=== PATIENT | male | born 2000 | race Caucasian/White ===

== ENCOUNTER 2021-05-20 01:43 | Emergency (ER) | payer BC ==
[~2021-05-20] VITALS: Ht 182.9 cm; Wt 86.4 kg
[2021-05-20 01:48] VITALS: TEMP 97.8
[2021-05-20 02:03] VITALS: BP 120/83; PULSE 78
== END 2021-05-20 02:02 | disposition home or self-care (01) ==
LOC: COL.ER 01:43
DX: S09.90XA Unspecified injury of head, initial encounter (principal); W19.XXXA Unspecified fall, initial encounter; Y92.59 Other trade areas as the place of occurrence of the external cause

== ENCOUNTER 2023-10-02 16:46 | Inpatient (IN) | payer BC ==
[~2023-10-02] VITALS: Ht 180.3 cm; Wt 88.9 kg
[2023-10-02] VITALS (254 sets, daily range): BP systolic 101–131; BP diastolic 58–96; PULSE 89–104; TEMP 99; O2SAT 94–100
[2023-10-02 17:24] LABS: COLLECTION METHOD CLEAN CATCH
[2023-10-02 17:28] LABS: HEMATOCRIT 51.9 % (42.0-52.0); HEMOGLOBIN 17.1 g/dl (13.5-18.0); MEAN CELL VOLUME 83 fl (80.0-100.0); MEAN CORPUSCULAR HEMOGLOBIN 27 pg (27-31); MEAN CORPUSCULAR HGB CONC 33 g/dl (33.0-37.0); MEAN PLATELET VOLUME 11.1 fl (7.4-10.4); PLATELET COUNT 259 K/mm3 (130-400); RED BLOOD COUNT 6.26 M/mm3 (4.20-5.60)
[2023-10-02 17:44] LABS: ALANINE AMINOTRANSFERASE 38 U/L (0-55); ALBUMIN 4.3 gm/dL (3.5-5.0); ALKALINE PHOSPHATASE 125 U/L (40-150); ANION GAP 25 mmol/L (7-16); AST,SGOT 15 U/L (5-34); BLOOD UREA NITROGEN 16 mg/dL (9-21); CALCIUM 10.4 mg/dL (8.4-10.2); CHLORIDE 101 mmol/L (98-107); CREATININE, serum 1.72 mg/dL (0.72-1.25); LIPASE 44 U/L (8-78); POTASSIUM 4.2 mmol/L (3.5-4.5); SODIUM 132 mmol/L (136-145); TOTAL PROTEIN 8.1 gm/dL (6.2-8.1)
[2023-10-02 17:46] LABS: URINE APPEARANCE Clear (CLEAR/HAZY); URINE BLOOD 1+ (NEGATIVE); URINE COLOR Yellow (YELLOW); URINE GLUCOSE 2+ (NEGATIVE); URINE KETONE 4+ (NEGATIVE); URINE NITRATE Negative (NEGATIVE); URINE PROTEIN(semi-quant) TRACE (NEGATIVE); URINE UROBILINOGEN 0.2 E.U/dL (0.2-1.0)
[2023-10-02 17:47] LABS: SQUAMOUS EPITHELIAL 0-2 /hpf (0-10); URINE RBC 0-2 /hpf (0-2)
[2023-10-02 17:47] LABS: ACETONE,SERUM MODERATE
[2023-10-02 17:48] LABS: GLUCOSE 580 mg/dL (70-99)
[2023-10-02 17:48] LABS: TRICYCLIC ANTIDEPRESS URINE NEGATIVE
[2023-10-02 17:49] LABS: CARBON DIOXIDE 6 mmol/L (22-29)
[2023-10-02 17:53] LABS: BILIRUBIN,TOTAL 0.8 mg/dL (0.2-1.2)
[2023-10-02 18:15] LABS: LYMPHOCYTE 5 % (20.0-51.0); NEUTROPHILS 88 % (42.0-75.2)
[2023-10-02 18:16] LABS: HYPOCHROMIA 1+; PLATELET ESTIMATE NORMAL (NORMAL); TOXIC GRANULATION PRESENT
[2023-10-02 18:54] LABS: MAGNESIUM 2.3 mg/dL (1.6-2.6); PHOSPHOROUS 3.8 mg/dL (2.3-4.7)
[2023-10-02 20:52] LABS: CALCIUM 8.5 mg/dL (8.4-10.2); CREATININE, serum 1.24 mg/dL (0.72-1.25); POTASSIUM 3.4 mmol/L (3.5-4.5)
[2023-10-02 22:42] LABS: CALCIUM 8.2 mg/dL (8.4-10.2); CREATININE, serum 1.12 mg/dL (0.72-1.25); POTASSIUM 3.5 mmol/L (3.5-4.5)
[2023-10-03] VITALS (1155 sets, daily range): BP systolic 92–134; BP diastolic 51–84; PULSE 73–96; TEMP 97.6–99; O2SAT 86–100
[2023-10-03 00:57] LABS: CALCIUM 8.1 mg/dL (8.4-10.2); CREATININE, serum 1.02 mg/dL (0.72-1.25); POTASSIUM 3.1 mmol/L (3.5-4.5)
[2023-10-03 03:03] LABS: CALCIUM 7.9 mg/dL (8.4-10.2); CREATININE, serum 0.92 mg/dL (0.72-1.25); POTASSIUM 3.5 mmol/L (3.5-4.5)
[2023-10-03 05:05] LABS: BASO % 0.4 % (0.0-2.0); EOS # 0.1 K/mm3 (0.0-0.7); GRAN # 7.9 K/mm3 (1.4-6.5); GRAN % 71.1 % (42.2-75.2); LYMPH % 17.9 % (20.0-51.0); MEAN CELL VOLUME 79 fl (80.0-100.0); MEAN CORPUSCULAR HEMOGLOBIN 28 pg (27-31); MEAN CORPUSCULAR HGB CONC 35 g/dl (33.0-37.0); MEAN PLATELET VOLUME 10.2 fl (7.4-10.4); MONO % 9.2 % (1.7-9.3); PLATELET COUNT 179 K/mm3 (130-400); RED BLOOD COUNT 5.06 M/mm3 (4.20-5.60); REDCELL DISTRIBUTION WIDTH-CV 13.6 % (11.5-14.5)
[2023-10-03 05:07] LABS: HEMATOCRIT 39.7 % (42.0-52.0)
[2023-10-03 05:24] LABS: CALCIUM 8.2 mg/dL (8.4-10.2); CREATININE, serum 0.92 mg/dL (0.72-1.25); POTASSIUM 3.2 mmol/L (3.5-4.5)
[2023-10-03 05:45] LABS: MAGNESIUM 1.6 mg/dL (1.6-2.6); PHOSPHOROUS 1.8 mg/dL (2.3-4.7)
--- NOTE | 2023-10-03 07:55 | NUR ---
RECEIVED REPORT FROM NIGHTSMOFT RNABDOUL. PATIENT REMAINS ON HOURLY GLUCOSE CHECKS AND ON THE INSULIN DRIP AT THIS TIME. PATIENT RESTING IN BED WITH EYES CLOSED. BED IN A LOW POSITION. CALL LIGHT WITHIN REACH.
--- NOTE | 2023-10-03 07:58 | NUR ---
HEAD TO TOE ASSESSMENT COMPLETED. PATIENT IS ALERT AND ORIENTED X4. PUPILS ARE EQUAL AND REACTIVE. HEART SOUNDS REGULAR WITH S1 AND S2 NOTED. LUNG SOUNDS CLEAR BILATERALLY IN UPPER AND LOWER LOBES. BOWEL SOUNDS ACTIVE X4. PATIENT IS ABLE TO GET UP TO THE TOILET INDEPENDENTLY TO VOID. PULSES PRESENT AND EQUAL BILATERALLY IN UPPER AND LOWER EXTREMITIES. PATIENT REMAINS ON INSULIN DRIP AND HOURLY GLUCOSE CHECKS AT THIS TIME. PATIENT IS ALSO ON D5 1/2 NS W/ 20MEQ OF POTASSIUM WELL POTASSOUM REPLACEMENT. BED IS IN A LOW POSITION. CALL LIGHT WITHIN REACH.
[2023-10-03 08:13] LABS: CREATININE, serum 0.86 mg/dL (0.72-1.25); POTASSIUM 3.1 mmol/L (3.5-4.5)
[2023-10-03 08:56] LABS: CALCIUM 8.1 mg/dL (8.4-10.2); CREATININE, serum 0.86 mg/dL (0.72-1.25); POTASSIUM 3.2 mmol/L (3.5-4.5)
--- NOTE | 2023-10-03 10:33 | NUR ---
personal care worker met with pt and mother, Carmita [phone] at bedside to complete intake questions. Pt lives in [place] with two roommates. He sees Dr. Wayne at [facility] and obtains medications from [facility] with no difficulties. He is independent with ADLS and uses no DME. He does not have a DPOA-HC and declines one at this time. Pt intends to return home when able.
[2023-10-03 11:08] LABS: CREATININE, serum 0.82 mg/dL (0.72-1.25); POTASSIUM 3.4 mmol/L (3.5-4.5)
[2023-10-03] MEDS ORDERED: [UNRECOGNIZED DRUG - OTHER] PO (11:25)
[2023-10-03] MEDS ORDERED: MULTIPLE VITAMI1 CAP PO (11:28)
--- NOTE | 2023-10-03 19:00 | NUR ---
BEDSIDE REPORT RECEIVED FROM RUDY HIRSCH. PT RESTING IN BED AND MEAL TRAY REMOVED. FAMILY AT BEDSIDE. CARE PLAN REVIEWED AND ALL QUESTIONS ANSWERED. BED IN LOW POSITION, CALL LIGHT IN HAND, AND PT DENIES NEEDS AT THIS TIME.
--- NOTE | 2023-10-03 20:00 | NUR ---
PT RESTING IN BED AND CARE PLAN REVIEWED WITH MEDS AND NIGHTLY PLAN. PT IS A&0 AND DENIES NEEDS. CALL LIGHT WITHIN REACH, BED IN LOW POSITION, AND ALL QUESTIONS ANSWERED WITH ASSESSMENTS AT THIS TIME.
[2023-10-04] VITALS (485 sets, daily range): BP systolic 99–123; BP diastolic 57–79; PULSE 56–79; TEMP 97.2–99; O2SAT 93–98
--- NOTE | 2023-10-04 07:15 | NUR ---
Report received from RUDY Turner. No events overnight. Blood sugars remained stable. Pt alert and oriented this AM; orders breakfast. Instructed to call when it arrives to that blood sugar can be taken. Pt verbalizes understanding. Call light in reach.
[2023-10-04 07:25] LABS: CALCIUM 8.3 mg/dL (8.4-10.2); CREATININE, serum 0.7 mg/dL (0.72-1.25)
[2023-10-04 07:27] LABS: POTASSIUM 2.7 mmol/L (3.5-4.5)
--- NOTE | 2023-10-04 08:15 | NUR ---
Pt instructed on how to check blood sugar; was able to return demonstration. Pt was also instructed on how to administer insulin; was able to administer both insulins to himself. This nurse also went over general diabetes education with pt and his mother; all questions answered appropriately. Encouraged pt and mother to continue to read over printed diabetes education and write down questions they may have.
--- NOTE | 2023-10-04 12:17 | NUR ---
Data: Bulking Machine Operator visit attempted. Assessment: RN was with Patient. Plan of Care: Chaplains will remain available as needed/desired whil Patient is admitted to this hospital.
--- NOTE | 2023-10-04 14:44 | NUR ---
Pt transfered to medical room 308. Report given to RUDY Chavez. Pt's family present during transfer. Pt in possession of all belongings. RUDY Chavez present upon pt's arrival.
--- NOTE | 2023-10-04 14:50 | NUR ---
PT UP TO FLOOR AT THIS TIME. A/O X4, RA, VITALS STABLE, FAMILY AT BEDSIDE, STEADY GAIT, WILL CONTINUE TO MONITOR.
--- NOTE | 2023-10-05 00:52 | NUR ---
NURSING SHIFT ASSESSMENT COMPLETED. THE PATIENT WAS ALERT, ORIENTED AND APPROPRIATE. THE PATIENT DENIED PAIN OR DISCOMFORT. DIABETIC EDUCATION PROVIDED REGARDING HIGH AND LOW BLOOD GLUCOSE SIGNS AND SYMPTOMS. DIABETIC EDUCATION REGARDING THE USE AND DISPOSAL OF SHARPS AT HOME. INSULIN INJECTION TECHNIQUE WITH VERBAL DISCUSSION AND RETURN DEMONSTRATION. THE PATIENT WAS VERY RECEPTIVE AND VERBALIZED AND DEMONSTRATED UNDERSTANDING. NO OTHER NEEDS AT THIS TIME. THE PATIENT IS UP IN THE ROOM INDEPENDENTLY WITH A STEADY GAIT. CALL LIGHT AVAILABLE, BED IN LOW POSITION, PERSONAL BELONGINGS IN ROOM.
[2023-10-05 03:49] VITALS: BP 107/67; PULSE 70; TEMP 98.4
[2023-10-05 07:10] LABS: CALCIUM 8.8 mg/dL (8.4-10.2); CREATININE, serum 0.78 mg/dL (0.72-1.25); POTASSIUM 3.5 mmol/L (3.5-4.5)
[2023-10-05 07:43] VITALS: BP 112/68; PULSE 73; TEMP 97.6
--- NOTE | 2023-10-05 09:15 | NUR ---
PT LAYING IN BED UPON ENTERING, MOM AT BEDSIDE. ASSESSMENT DONE, PT DENIES PAIN AT THIS TIME. ORAL MED AMD HEPARIN GIVEN BY THIS NURSE AND INSULIN GIVEN BY PT IN ABDOMEN. PT PREVIOUSLY EDUCATED AND DENIES QUESTIONS. MOM ASKING ABOUT PTS POTASSIUM AND MAGNESIUM THIS AM AND WITH PTS PERMISSION UPDATED. PT WANTS TO SHOWER AND PREM, PCT NOTIFIED TO WRAP IV. PT DENIES NEEDS AT THIS TIME. BED IN LOWEST POSITION, CALL LIGHT IN REACH
[2023-10-05] MEDS ORDERED: BD ALCOHOL1 SWA MC (09:30)
[2023-10-05] MEDS ORDERED: INSULIN PEN NE1 EAC1 MC (09:30)
[2023-10-05] MEDS ORDERED: LANCETS MC (09:30)
[2023-10-05] MEDS ORDERED: GLUTOSE 1515 GM PO (09:30)
[2023-10-05] MEDS ORDERED: GLUCOSE TEST ST1 DEV MC (09:30)
[2023-10-05] MEDS ORDERED: NOVOLOG FLEX100 U/ML SQ (09:36)
[2023-10-05] MEDS ORDERED: LEVEMIR FLEX100 U/ML SQ (10:05)
--- NOTE | 2023-10-05 11:11 | NUR ---
PT DRESSED IN PERSONAL CLOTHES, MOM AT BEDSIDE. IV IN RIGHT WRIST AND LEFT AC REMOVED. PT AND MOM GIVEN DISCHARGE INSTRUCTIONS. EDUACTION ABOUT SIGNS AND SYMPTOMS OF HYPERGLYCEMIA AND HYPOGLYCEMIA GIVEN. NOTIFIED THAT IT WOULD BE BEST TO CHECK SUGARS BEFORE MEALS, BEFORE/DURING/AFTER EXERCISE, AND IF FEELING SYMPTOMATIC. ALL QUESTIONS ANSWERED AND BOTH VERBALIZED UNDERSTANDING AND DENIES NEEDS AT THIS TIME. 1100 BS 323. PT JUST RECEIVED 10 MORE UNITS OF LEVEMIR. LUIS ALBERTS CALLED OT SEE IF OKAY TO GIVE 10 UNITS OF NOVOLOG. PA TOLD THIS NURSE NOVOLOG IS OKAY TO GIVE. PT ADMINISTERED HIMSELF AND EDUCATED TO EAT IN THE NEXT 30-45 MINS. PT VERBALIZED UNDERSTANDING AND AMBULATED TO PERSONAL VEHICLE WITH KIEL QUINN
== END 2023-10-05 11:11 | disposition home or self-care (01) | DRG 638 ==
LOC: COL.ER 16:46 → ICU 18:22 → MEDICAL 10-04 14:50
PROVIDERS: Internal Medicine; Nurse Practitioner Family; Physician Assistant; ADMIT Internal Medicine
DX: E11.10 Type 2 diabetes mellitus with ketoacidosis without coma (principal); N17.9 Acute kidney failure, unspecified; D72.829 Elevated white blood cell count, unspecified
CPT/HCPCS: J1644; J1815; J3475; J3480; J7030; J7120

== ENCOUNTER → 2023-10-09 | Outpatient (CLI) | payer BC ==
[~2023-10-09] MED LIST: BD ALCOHOL1 SWA MC; GLUCOSE TEST ST1 DEV MC; GLUTOSE 1515 GM PO; INSULIN PEN NE1 EAC1 MC; LANCETS MC; LEVEMIR FLEX100 U/ML SQ; MULTIPLE VITAMI1 CAP PO; NOVOLOG FLEX100 U/ML SQ; [UNRECOGNIZED DRUG - OTHER] PO
== END ==
LOC: DIA.ED 10:22
DX: E10.9 Type 1 diabetes mellitus without complications (principal)
CPT/HCPCS: G0108

== ENCOUNTER → 2023-11-13 | Outpatient (CLI) | payer BC | LOC: DIA.ED 08:53 | DX: E10.9 Type 1 diabetes mellitus without complications (principal) ==